=== PATIENT | female | born 1995 | race African-American/Black ===

== ENCOUNTER 2019-01-02 19:09 | Day surgery (SDC) | payer SELFPAY ==
[2019-01-02 19:38] VITALS: BP 111/65; TEMP 99.5; BMI 28.2
--- NOTE | 2019-01-02 19:56 | PDOC.LDHP ---
Labor and Delivery H&P Chief complaint: contractions HPI: Ms. Tate presents today for contractions. She reports since approximately 1000 on 01/01 she has had lower abdominal pain that she is unable to breath through that comes and goes, about every 14 mins. She denies reduced movement, VB/VD, ROCA, SOB Current gestational age (weeks): 39 Due date: 01/09/19 Dating criteria: last menstrual period Grav: 1 Para: 0 OB History Details: [facility] Current complications: none Abnormal US findings: No Past Medical History: none reported Current medications: pre-lo vitamins Previous surgical history: appendectomy (open) Allergies/Adverse Reactions: Allergies Allergy/AdvReac Type Severity Reaction Status Date / Time No Known Allergies Allergy Verified 01/02/19 19:33 Social history: none - Physical Exam Vital signs reviewed and normal: yes General: NAD Heart: RRR Lungs: CTAB Abdomen: NTTP Extremeties: no edema FHT: variability present (accelerations, baseline 140) [employer] contractions every: 1 in 15 mins - Vaginal Exam cm dilated: 2 Effacement: 50% Station: -2 - OB Labs Blood type: B RH: positive RPR: negative HEPSAg: negative 1 hour GCT: unknown GBS: negative Urine drug screen: not done Additional Labs: labs completed in [place], reported vaccine against rubella. Decline additional labs. needs CBC, HIV upon admission for labor - Assessment 3T with contractions - Plan -: - monitor ctx pattern for 30 mins, ctx>10 min spacing DC home with labor precautions - return for large gush of fluid, ctx closer than 5 mins, decreased movement or bleeding
== END 2019-01-02 21:00 | disposition home or self-care (01) ==
LOC: L&D/OP 19:09
PROVIDERS: ATTEND Student in an Organized Health Care Education/Training Program
DX: O47.1 False labor at or after 37 completed weeks of gestation (principal); Z3A.39 39 weeks gestation of pregnancy
CPT/HCPCS: 99282

== ENCOUNTER 2019-01-03 08:05 | Inpatient (IN) | payer OTHER, SELFPAY ==
[2019-01-03 08:41] VITALS: BMI 28.2
--- NOTE | 2019-01-03 09:02 | PDOC.LDHP ---
Labor and Delivery H&P Chief complaint: contractions HPI: 23 yo @ 39.1 by LMP c/w 18.2 week sono presents for painful contractions. Pt reports contractions since Friday that have become stronger and more consistent ranging from 4-8 min apart. Denies LOF, rpeorts pos movement. Denies vaginal discharge. Reports bloody show yesterday, no bleeding since then. Current gestational age (weeks): 39 Due date: 01/09/19 Dating criteria: second trimester ultrasound Grav: 1 Para: 0 OB History Details: Previous care in [facility], documents from initial OB care unavailable Current complications: none Abnormal US findings: No Current medications: pre- vitamins Previous surgical history: none Allergies/Adverse Reactions: Allergies Allergy/AdvReac Type Severity Reaction Status Date / Time No Known Allergies Allergy Verified 01/03/19 08:42 Social history: none - Physical Exam Vital signs reviewed and normal: yes General: breathing through contractions Heart: RRR Lungs: nonlabored breathing Abdomen: gravid Extremeties: no edema FHT: category 1 (140, pos accels no decels, mod variability), variability present [place] contractions every: 8 - Vaginal Exam cm dilated: 5 Effacement: 75% Station: 0 - OB Labs Blood type: B RH: positive Antibody Screen: negative HIV: negative RPR: negative HEPSAg: negative 1 hour GCT: unknown GBS: negative Urine drug screen: not done - Assessment L&D Assessment: term patient in labor - Plan Plan: admit to L&D -: 1) TIUP in labor - admit to L&D - recheck cervix in 2 hrs -ctx q7-8 min - 140s fhts mod variability pos accels, no decels - cervical check 80/0 2) unknown initial OB labs - will draw labs as early paperwork/results unavailable Dispo: stable, admit L&d, consider pit if no change on next cervical check Addendum - Attending - Attending Attestation Date/Time: 01/03/19 8366 I personally evaluated the patient and discussed the management with Dr. Coffey I agree with the History, Examination, Assessment and Plan documented above with any addition or exceptions noted below - 23 yo @39 1/7 weeks presented c/o increased ctx. Seen last night and discharged. SVE at that time 2/ 50%-2. Denies any LOF, VB. (+) FM. Afebrile VSS SVE 5/80/0. FHTs- Category 1. [place] ctx q3-9 minutes. A/P: 1) IUP @ 39 1/7 weeks with cervical change since last night and increasingly painful ctx. Admit to L&D. Reassuring FHTs.
[2019-01-03] MEDS ORDERED: Acetaminophen 500 MG TAB PO PRN (09:08)
[2019-01-03] MEDS ORDERED: Butorphanol Tartrate 1 MG/ML VIAL SLOW IVP PRN (09:08)
[2019-01-03] MEDS ORDERED: Docusate 100 MG CAP PO PRN (09:08)
[2019-01-03] MEDS ORDERED: Ondansetron PF 4 MG/2 ML Vial IVP PRN ×2 (09:08→19:52)
[2019-01-03] MEDS ORDERED: Promethazine HCl 25 MG/ML VIAL IM PRN ×2 (09:08→19:52)
[2019-01-03] MEDS: Lactated Ringer's 1,000 ML IV SCH ×2 (09:30→22:48)
[2019-01-03 10:22] LABS: Mean Corpuscular HGB CONC 34.1 g/dL (32.0-36.0); Mean Corpuscular Hemoglobin 28.1 pg (27.0-31.0); Mean Corpuscular Volume 82.3 fL (78.0-98.0); Mean Platelet Volume 10.1 fL (7.4-10.4); Platelet Count 199 thou/uL (130-400); RBC Distribution Width 13.1 % (11.5-14.5); Red Blood Cell (RBC) Count 3.91 mill/uL (4.20-5.40); White Blood Cell (WBC) Count 8.5 thou/uL (4.8-10.8)
[2019-01-03 10:53] LABS: HBSAg Index 0.21 S/CO (0-0.99); Hep B Surf Ag Non-Reactive S/CO (NonReactive)
[2019-01-03] MEDS ORDERED: Lidocaine 1% (PF) 30 ML VIAL SC PRN (10:56)
[2019-01-03 11:01] LABS: Syphilis Antibody Nonreactive (Nonreactive); Syphilis Antibody Index 0.06 S/CO (<1.00 Non-Reactive)
[2019-01-03] MEDS ORDERED: NS w/ Oxytocin 10 units 500 ML ONE (12:06)
[2019-01-03] MEDS ORDERED: NS w/ Oxytocin 10 units 500 ML IV SCH (12:15)
--- NOTE | 2019-01-03 12:30 | PDOC.LDPN ---
Labor & Delivery Progress Note - Subjective Subjective: painful contractions - Objective Vital signs reviewed and normal: yes General: breathing through contractions Uterine fundus: non tender SVE: 5 Effacement: 90% Station: 0 FHT: category 1, variability present [place] contractions every: 8 Resuscitative measures: maternal oxygen, maternal IV fluids, maternal position change Plan: pitocin for augmentation -: 1) TIUP - no change since last cervical check, augment with pit - titrate to adequate contractions - cat 1 strip - recheck cervix in 2 hours - Pt GBS negative - check rubella status, other labs WNL
[2019-01-03 13:45] LABS: HIV (1/2) Antibody/Antigen Non-Reactive (NonReactive); HIV 1/2 INDEX 0.11 S/CO (<1.00)
--- NOTE | 2019-01-03 14:14 | PDOC.LDPN ---
Labor & Delivery Progress Note - Subjective Subjective: painful contractions - Objective Vital signs reviewed and normal: yes General: breathing through contractions Uterine fundus: non tender Dilation: 6 Effacement: 90% Station: 0 FHT: category 2 (minimal variability s/p stadol with recovery and currently cat 1 with mod variability), variability present [place] contractions every: 3 Plan: pitocin for augmentation -: 1) TIUP in labor -cont pit for augmentation - stadol for pain - currently cat 1 strip with mod variability pos accels no decels - pit @ 2 - recheck cervix in 2 hours - titrate pit as appropriate - maternal resusc as indicated
--- NOTE | 2019-01-03 17:34 | PDOC.LDPN ---
Labor & Delivery Progress Note - Subjective Subjective: painful contractions, loss of fluid - Objective Vital signs reviewed and normal: yes General: breathing through contractions Uterine fundus: non tender Dilation: 10 Effacement: 100% Station: 1+ FHT: category 1 [place] contractions every: 3 Resuscitative measures: maternal oxygen, maternal IV fluids, maternal position change Plan: pitocin for augmentation -: 1) TIUP in labor - srom @ 1530 clear fluid - bl 130s pos accels, no decels - cont plan of care
[2019-01-03] MEDS: NS / Oxytocin 40 units/1000ml 1,000 ML IV PRN ×2 (18:46→19:46)
[2019-01-03] MEDS ORDERED: Milk Of Magnesia 30 ML UDCUP PO PRN (19:52)
[2019-01-03] MEDS ORDERED: NS / Oxytocin 40 units/1000ml 1,000 ML IV SCH (19:52)
[2019-01-03] MEDS ORDERED: Benzocaine/Menthol 20-0.5% 60 ML CAN TOP PRN (19:52)
[2019-01-03] MEDS ORDERED: Bisacodyl 10 MG SUPP PR PRN (19:52)
[2019-01-03] MEDS: Ibuprofen 800 MG TAB PO SCH (22:47)
[2019-01-03] MEDS: Docusate Calcium (SURFAK) 240 MG CAP PO SCH (22:47)
--- NOTE | 2019-01-04 00:19 | PDOC.OPDEL ---
OB Operative/Delivery Note Delivery Dr/Surgeon: Alexx Kaufman [place] Pre-Delivery Diagnosis: active labor Procedure/Post Delivery Dx: spontaneous vaginal delivery - Findings A Sex: female - 1 min: 8 - 5 min: 9 - Additional Findings/Plan Placenta delivered: spontaneous Repaired Obstetrical Laceration: 2nd degree Estimated blood loss: QBL 315 Compilations/Other Findings: Delivery Note: This is 23yo F @ 39.1 wks who delivered a viable F at 1816 on 01/03/19. Following an uneventful antepartum course, a vigorous Female was delivered over an intact perineum in the transverse position. Anterior Shoulder and then remainder of the body delivered. [id number] bandolier cord. The head was held down and mouth and nares were bulb suctioned. Cord clamped and cut and cord blood collected. Placenta delivered intact in the Pimentel position with a 3 vessel cord noted. Fundal massage was performed and the fundus was firm. The cervix was inspected and found to be free of lacerations. Vaginal Laceration noted and repaired with 3.0 vicryl in the usual fashion with good approximation and hemostasis after a local anesthetic 20cc lidocaine was injected at site. Infant went to nursery in good condition for routine care. Apgars were 8/9 at 1 & 5 minutes, respectively. Patient tolerated delivery well and went to after routine recovery/ care. Post delivery plan: routine recovery
--- NOTE | 2019-01-04 05:49 | PDOC.PP ---
Post Progress Note Post Day #: 1 Subjective: Pt states she did well overnight. She report abdominal pain and increased pain with walking. She reports eating some. She denies nausea, vomiting, chest pain, sob, or lightheadedness. PO intake tolerated: yes Flatus: no Ambulation: no Vital Signs (12 hours) Temp Pulse Resp BP Pulse Ox 01/03/19 21:20 100 01/03/19 21:15 98.2 F 88 18 109/59 L 100 Weight Weight 79.379 kg - Physical Examination General: NAD Cardiovascular: no m/r/g, RRR Respiratory: clear to auscultation bilaterally, non-labored breathing Abdominal: + bowel sounds, lochia (normal pp), no distention, appropriately TTP Fundus firm & at: 3 cm below umbilicus Extremities: negative homans (B) Neurological: no gross focal deficits Psychiatric: A&Ox3, normal affect Result Diagrams: 01/04/19 05:52 Additional Labs: Post Labs Blood Type B POSITIVE 01/03/19 09:40 Hep Bs Antigen Non-Reactive S/CO (NonReactive) 01/03/19 09:40 (1) Third trimester Code(s): Z34.93 - ENCNTR FOR SUPRVSN OF NORMAL PREG, UNSP, THIRD TRIMESTER Status: Acute - Assessment/Plan This is a 23 yo who delivered at 39.1 wks Third trimester , delivered via -Routine care -Encouraged ambulation and PO intake -Encouraged breast feeding -QBL 315 2nd degree laceration -Repaired after delivery Pubic diastasis symphsiolysis -Possible pelvic binder -Obtain walker for pt Pt is self pay, bear in mind when prescribing. Addendum - Attending - Attending Attestation Date/Time: 01/04/19 [id number] I personally evaluated the patient and discussed the management with Dr. Morse I agree with the History, Examination, Assessment and Plan documented above with any addition or exceptions noted below. 23 yo female s/p on 01/03/19 at 18:16 HD#2 PPD#1 Patient reports moderate to severe pain to pelvis, especially with movement. Unable to ambulate well 2/2 pain. Reports Lochia mild. Breast feeding but concerned about milk production. Discussed need for stimulation and nutrients of colostrum. Denies vaginal swelling. Voiding well. VS reviewed. Labs reviewed. In pain. Unable to move well from different positions. RRR. No murmurs CTAB NT/ND. Fundus firm below umbilicus. Deferred vaginal exam at this time due to pain. FROM. no e/c/c 1. s/p : Routine pp care. 2. Diastasis symphysis pubis: Will attempt to get walker at bedside. Monitor pain control. Is self pay and would like to avoid imaging and PT consult at this time. 3. Blood loss anemia: Continue iron supplementation. 4. Breast feeding: Continue to monitor. Offered consult but patient declined at this time. Mother present and offered to assist. 5. Contraception: Family planning. Rosemarie
[2019-01-04] MEDS: Lactated Ringer's 1,000 ML IV SCH (06:30)
[2019-01-04 06:31] LABS: Hemoglobin 8.3 g/dL (12.0-16.0); Mean Corpuscular HGB CONC 33.5 g/dL (32.0-36.0); Mean Corpuscular Hemoglobin 27.8 pg (27.0-31.0); Mean Corpuscular Volume 83.1 fL (78.0-98.0); Mean Platelet Volume 9.2 fL (7.4-10.4); Platelet Count 172 thou/uL (130-400); RBC Distribution Width 13.1 % (11.5-14.5); Red Blood Cell (RBC) Count 2.97 mill/uL (4.20-5.40); White Blood Cell (WBC) Count 10.2 thou/uL (4.8-10.8)
[2019-01-04] MEDS: Ibuprofen 800 MG TAB PO SCH ×2 (07:06→14:15)
[2019-01-04] MEDS: Ferrous Sulfate 325 MG TAB PO SCH ×2 (08:14→18:16)
[2019-01-04] MEDS: HYDROcodone/Acetaminophen 5/325 mg Tablet PO PRN ×2 (08:14→13:03)
[2019-01-04] MEDS: Docusate Calcium (SURFAK) 240 MG CAP PO SCH (08:14)
[2019-01-04] MEDS ORDERED: Prenatal Vitamin 1 TAB PO SCH (09:00)
[2019-01-04] MEDS ORDERED: Adacel (T-DAP) 0.5 ML SYRINGE IM ONE (09:00)
[2019-01-04 17:26] VITALS: BP 103/65; TEMP 97.9
== END 2019-01-04 21:05 | disposition home or self-care (01) | DRG 806 ==
LOC: L&D/OP 08:05 → L&D 18:14 → 3SW 21:09
PROVIDERS: ADMIT Student in an Organized Health Care Education/Training Program; ATTEND Student in an Organized Health Care Education/Training Program
PROC: 10E0XZZ Delivery of Products of Conception, External Approach (ICD-10-PCS; principal; 2019-01-03)
PROC: 0UQGXZZ Repair Vagina, External Approach (ICD-10-PCS; 2019-01-03)
DX: O69.81X0 Labor and delivery complicated by cord around neck, without compression, not applicable or unspecified (principal); O71.4 Obstetric high vaginal laceration alone; Z37.0 Single live birth; Z3A.39 39 weeks gestation of pregnancy
CPT/HCPCS: 36415; 85027; 86762; 86780; 86850; 86900; 86901; 87340; 87389; 99285; J0595; J2001